=== PATIENT | female | born 1980 | race Caucasian/White ===

== ENCOUNTER 2019-04-09 12:01 | Day surgery (SDC) | payer BC, SELFPAY ==
[2019-04-09] VITALS (7 sets, daily range): BP systolic 111–133; BP diastolic 69–77; PULSE 76–95; RESP 16–18; TEMP 36.8–37.1; O2SAT 97–100; BMI 25.8
[2019-04-09] MEDS: LACTATED RINGERS 1,000 ML 30 ML IV CONT ×2 (12:45→15:33)
--- NOTE | 2019-04-09 13:18 | WPDANESEPPF ---
Anes - Initial Pre Proc Eval Procedure: Operation Date: 04/09/19 14:30 Proposed Procedures p Removal Tissue Digital Service Engineer Right Breast - Cheo Sampson MD Date/Time: 04/09/19 13:18 Surgeon: Cheo Sampson MD Pre Op Diagnosis: Exposed Tissue Digital Service Engineer Right Breast Patient Data Age: 38 Gender: F Height: 1.73 m Weight: 79.8 kg Allergies Allergy/AdvReac Type Severity Reaction Status Date / Time tramadol AdvReac Unknown UPSET Verified 04/09/19 13:06 STOMACH Home Medications Medication Instructions Recorded Confirmed Type alprazolam 0.25 mg tablet 0.25 mg PO DAILY PRN 01/25/19 04/09/19 History cetirizine 10 mg capsule 10 mg PO DAILY 01/25/19 04/09/19 History losartan 25 mg tablet 25 mg PO HS 01/25/19 04/09/19 History montelukast 10 mg tablet 10 mg PO HS 01/25/19 04/09/19 History venlafaxine 100 mg PO DAILY 02/01/19 04/09/19 History sertraline 50 mg PO HS 02/12/19 04/09/19 History trazodone 100 mg PO HS 02/12/19 04/09/19 History cephalexin 500 mg capsule 500 mg PO Q8H #30 cap 03/08/19 04/09/19 Rx carisoprodol 350 mg tablet 350 mg PO TID PRN #21 tablet 04/08/19 04/09/19 Rx Patient hx anesthesia problems: none Family hx anesthesia problems: none PMFSH Past Medical History Medical History (Updated 04/09/19 @ 13:19 by Rajesh Samayoa MD) Anxiety BRCA positive Depression Exposed breast implant Family history of breast cancer Genetic susceptibility to malignant neoplasm Hypertension Surgical History Surgical History (Updated 04/09/19 @ 13:19 by Rajesh Samayoa MD) History of bilateral mastectomy History of carpal tunnel release of both wrists History of delivery History of nasal surgery History of tubal ligation Social History Social History Smoking status: Never smoker Second hand tobacco smoke exposure: No Alcohol intake: never Substance use: never Gender identity (if verbalized by the patient): Female Spiritual care concerns: No Agree to blood products: Yes Anes - Eval Final PreProcedure Day of Procedure 04/09/19 13:18 Patient weight: overweight Heart: regular rate and rhythm Lungs: clear to auscultation and normal air movement Airway: Mallampati scale class II Neurological: alert and oriented Last oral intake: >/= 8 hours ASA classification: II Emergent: no Anesthetic plan: proceed Anesthesia type and monitoring: general LMA Informed Consent: The patient's anesthetic plan and its attendant risks and benefits were discussed with the patient/family/POA. Questions were solicited and answers provided to the satisfaction of the patient/family/POA.
[2019-04-09] MEDS: LIDO 1%/EPINEPHRINE 1:100,000 20 ML VIAL INFILTRATE (13:56)
[2019-04-09] MEDS: ceFAZolin 2 GM/D5W 50 ML 2 GM/50 ML BAG IVPB (13:56)
--- NOTE | 2019-04-09 14:42 | SUR.OPER ---
EBL:20CC
--- NOTE | 2019-04-09 14:45 | P.OP_ITS ---
Procedure Note - Detailed Date of procedure: 04/09/19 Pre-op diagnosis: Exposed Tissue Head Baggage Porter Right Breast Procedure performed: Removal right tissue retail selling floor leader and unincorporated AlloDerm Description of procedure: Patient was marked in the preoperative holding area w ith her verification. She was taken to the operating room placed supine on operating room table. Anesthesia was provided by anesthesiology. I completed examination evaluated left breast as we saw little bit of ?crusting along the previous incision line. There was no evidence of infection however and we cleaned this. On the right breast she was prepped and draped in a standard sterile fashion. Surgical time-out was taken. 1% lidocaine and 0.25% Marcaine with epinephrine was used for a field block. Fifteen blade used to make an incision at the previous incision site. I continued dissection down to the AlloDerm was identified. I opened this and removed the tissue retail selling floor leader. I then debrided all unincorporated AlloDerm which was basically the entire anterior aspect. The posterior wall was already incorporated. I irrigated with 3 L of bacitracin containing solution on TUR tubing. I then verified hemostasis. A 15 Mark drain was placed and sutured into place with 3-0 nylon. I then closed using 2-0 Vicryl followed by 3-0 Monocryl in a running subcuticular 4-0 Monocryl. A dressing was placed. She tolerated well. Surgeon: Cheo Sampson MD Estimated blood loss (mL): 5 Drains: Yes (Right 15 Mark) Packing: No Pathology: none sent Complications: No immediate complications Condition: stable Disposition: PACU Findings: Exposed AlloDerm. No sam purulence.
[2019-04-09] MEDS: ONDANSETRON INJ 4 MG/2 ML VIAL IV PUSH (15:18)
== END 2019-04-09 16:15 | disposition home or self-care (01) ==
PROVIDERS: Visit Provider Surgery Plastic and Reconstructive Surgery
PROC: (CPT 11971; principal; 2019-04-09 14:30)
DX: T85.49XA Other mechanical complication of breast prosthesis and implant, initial encounter (principal); Y83.8 Other surgical procedures as the cause of abnormal reaction of the patient, or of later complication, without mention of misadventure at the time of the procedure; I10 Essential (primary) hypertension; F41.8 Other specified anxiety disorders; Z15.01 Genetic susceptibility to malignant neoplasm of breast; Z80.3 Family history of malignant neoplasm of breast
CPT/HCPCS: 11971; J0690; J1100; J2250; J2405; J2704; J3010; J7120

== ENCOUNTER 2019-06-25 00:18 | Day surgery (SDC) | payer BC, SELFPAY ==
[2019-05-20 15:38] VITALS: BMI 25.8
[2019-06-25] VITALS (7 sets, daily range): BP systolic 118–147; BP diastolic 85–90; PULSE 96–111; RESP 10–20; TEMP 37.1–37.2; O2SAT 95–100
[2019-06-25] MEDS: LACTATED RINGERS 1,000 ML 30 ML IV CONT ×2 (10:40→14:59)
--- NOTE | 2019-06-25 11:26 | WPDANESEPPF ---
Anes - Initial Pre Proc Eval Procedure: Operation Date: 06/25/19 12:00 Proposed Procedures p Insertion Bilateral Tissue Welt Maker With Alloderm - Cheo Sampson MD Date/Time: 06/25/19 11:26 Surgeon: Cheo Sampson MD Pre Op Diagnosis: Hx Of Bilateral Mastectomy Patient Data Age: 38 Gender: F Height: 5 ft 8 in Weight: 83 kg Last Vital Signs Temp 37.2 C 06/25/19 10:07 Pulse 105 H 06/25/19 10:07 Resp 20 06/25/19 10:07 BP 125/89 06/25/19 10:07 Pulse Ox 100 06/25/19 10:07 Allergies Allergy/AdvReac Type Severity Reaction Status Date / Time tramadol AdvReac Unknown UPSET Verified 06/25/19 10:47 STOMACH Home Medications Medication Instructions Recorded Confirmed Type alprazolam 0.25 mg tablet 0.25 mg PO DAILY PRN 01/25/19 06/25/19 History cetirizine 10 mg capsule 10 mg PO DAILY 01/25/19 06/25/19 History losartan 25 mg tablet 25 mg PO HS 01/25/19 06/25/19 History venlafaxine 100 mg PO DAILY 02/01/19 06/25/19 History sertraline 50 mg PO HS 02/12/19 06/25/19 History trazodone 100 mg PO HS 02/12/19 06/25/19 History Patient hx anesthesia problems: none Family hx anesthesia problems: none PMFSH Past Medical History Medical History Anxiety BRCA positive Depression Exposed breast implant Family history of breast cancer Genetic susceptibility to malignant neoplasm Hypertension Surgical History Surgical History History of bilateral mastectomy History of carpal tunnel release of both wrists History of delivery History of nasal surgery History of tubal ligation Family History Family History Father Hypertension Family history of cardiovascular disease Cerebrovascular accident Mother Family history of lung cancer Family history of malignant neoplasm of breast in first degree relative Sibling Family history of malignant neoplasm of breast in first degree relative Social History Social History Smoking status: Never smoker Second hand tobacco smoke exposure: No Alcohol intake: never Substance use: never Gender identity (if verbalized by the patient): Female Spiritual care concerns: No Agree to blood products: Yes Anes - Eval Final PreProcedure Day of Procedure 06/25/19 11:26 Patient weight: overweight Heart: regular rate and rhythm Lungs: clear to auscultation Airway: Mallampati scale class II Neurological: alert and oriented Last oral intake: >/= 8 hours ASA classification: II Emergent: no Anesthetic plan: proceed Anesthesia type and monitoring: general LMA and standard monitoring Informed Consent: The patient's anesthetic plan and its attendant risks and benefits were discussed with the patient/family/POA. Questions were solicited and answers provided to the satisfaction of the patient/family/POA.
--- NOTE | 2019-06-25 12:08 | PM.IMHP ---
H&P: HPI History of Present Illness Chief complaint: Hx Of Bilateral Mastectomy Narrative: Petty Rodriguez is a 38 year old female who presents today for bilateral breast reconstruction using prepectoral approach and tissue expanders. She has previously had immediate reconstruction however had loss of tissue expanders. She has had significant add 1st mental affect due to the lack of reconstruction. She has been seeing her primary care physician who stated that she feels even during this time of COVID-19 she recommends proceeding with reconstruction due to overall depression. Her primary care physician as well as the patient her feel this is medically necessary due to these psychological affects. Today we had a lengthy discussion about the options. Went over the risks, benefits, alternatives in great detail. Explained the increased risks associated with COVID-19 in a must be willing to accept these risks to proceed. All questions were answered to their satisfaction and consent obtained. Review of Systems Constitutional: Comments: She has had significant depression and other psychological FX as a result of this. Eyes: Eyes: Reports no additional eye complaints ENT: Reports system reviewed and no additional complaints, except as documented Cardiovascular: Cardiovascular: Denies chest pain Respiratory: Respiratory: Denies chest congestion, Denies cough, Denies dyspnea, Denies dyspnea on exertion and Denies wheezing Gastrointestinal: Gastrointestinal: Reports no additional gastrointestinal complaints Musculoskeletal: Musculoskeletal: Reports no additional musculoskeletal complaints Integumentary/Breasts: Skin/Breast: Reports system reviewed and no additional complaints, except as docu Neurologic: Denies headache(s) Psychiatric: Comments: As above PMFSH Past Medical History Medical History Anxiety BRCA positive Depression Exposed breast implant Family history of breast cancer Genetic susceptibility to malignant neoplasm Hypertension Surgical History Surgical History History of bilateral mastectomy History of carpal tunnel release of both wrists History of delivery History of nasal surgery History of tubal ligation Family History Family History Father Hypertension Family history of cardiovascular disease Cerebrovascular accident Mother Family history of lung cancer Family history of malignant neoplasm of breast in first degree relative Sibling Family history of malignant neoplasm of breast in first degree relative Social History Social History Smoking status: Never smoker Second hand tobacco smoke exposure: No Alcohol intake: never Substance use: never Gender identity (if verbalized by the patient): Female Spiritual care concerns: No Agree to blood products: Yes Meds Home Medications and Allergies Home Medications Medication Instructions Recorded Confirmed Type alprazolam 0.25 mg tablet 0.25 mg PO DAILY PRN 01/25/19 06/25/19 History cetirizine 10 mg capsule 10 mg PO DAILY 01/25/19 06/25/19 History losartan 25 mg tablet 25 mg PO HS 01/25/19 06/25/19 History venlafaxine 100 mg PO DAILY 02/01/19 06/25/19 History sertraline 50 mg PO HS 02/12/19 06/25/19 History trazodone 100 mg PO HS 02/12/19 06/25/19 History Allergies Allergy/AdvReac Type Severity Reaction Status Date / Time tramadol AdvReac Unknown UPSET Verified 06/25/19 10:47 STOMACH Vital Signs Vital Signs - 24 hr 06/25/19 10:07 Temperature 37.2 C Pulse Rate 105 H Respiratory Rate 20 Blood Pressure 125/89 Pulse Oximetry 100 Exam Const: General: no acute distress Eyes: General: appearance normal, both eyes and all related structures Neck: Neck: no JVD Resp: Effo
--- NOTE | 2019-06-25 12:14 | P.OP_ITS ---
Procedure Note - Detailed Date of procedure: 06/25/19 Pre-op diagnosis: Hx Of Bilateral Mastectomy Acquired breast deformity Post-op diagnosis: same Procedure performed: 1. Bilateral breast reconstruction using tissue expanders 2. Placement of bilateral breast AlloDerm [id number] (x2) Description of procedure: Patient was marked in the preoperative holding area with her verification. She was accompanied by her . She was taken to the operating room placed supine on the operating room table. Anesthesia provided by anesthesiology and prepped and draped in a standard sterile fashion. Surgical time-out was taken. 1% lidocaine with epinephrine was used to provide a field block. On the back table I did prepare the tissue salvage determiner with AlloDerm. These were soaked in a triple antibiotic Betadine containing solution. Sutured with 2-0 Vicryl. I elevated in the subcutaneous plane the appropriate dimension pocket based on her preoperative planning. Irrigated with 3 liters of saline total volume on TUR tubing. I placed bilateral 10 Stephany drains which were sutured into place with 3-0 nylon. I then irrigated the pocket with triple antibiotic Betadine containing solution. Wash my gloves with the solution again. Introduced the tissue salvage determiner into place and sutured the tabs in place with 2-0 Vicryl. I closed using 2-0 Vicryl followed by 3-0 Monocryl in a running subcuticular 4-0 Monocryl and tissue glue. I adjusted the volume removing all the air and then infiltrated 300 cc of saline using a closed fill kit bilateral. Fluffs, tape, and a surgical bra were placed. She tolerated the procedure well. Implants: Right: REF [id number] SN: [id number] Fill: 300cc Left: REF [id number] SN: [id number] Fill: 300cc Anesthesia: GETA Surgeon: Cheo Sampson MD Estimated blood loss (mL): 20 Drains: Yes (Bilateral stephany) Packing: No Pathology: yes (Bilateral scars) Complications: No immediate complications Condition: stable Disposition: PACU
[2019-06-25] MEDS: LIDO 1%/EPINEPHRINE 1:100,000 20 ML VIAL 45 ML INFILTRATE (12:17)
[2019-06-25] MEDS: ceFAZolin 2 GM/D5W 50 ML 2 GM/50 ML BAG IVPB (12:17)
--- NOTE | 2019-06-25 14:43 | SUR.OPER ---
EBL:20CC
== END 2019-06-25 16:46 | disposition home or self-care (01) ==
PROVIDERS: Visit Provider Surgery Plastic and Reconstructive Surgery
PROC: (CPT 19357; principal; 2019-06-25 12:00)
DX: Z42.1 Encounter for breast reconstruction following mastectomy (principal); Z85.3 Personal history of malignant neoplasm of breast; Z90.13 Acquired absence of bilateral breasts and nipples; Z15.01 Genetic susceptibility to malignant neoplasm of breast; I10 Essential (primary) hypertension; F41.8 Other specified anxiety disorders; Z80.3 Family history of malignant neoplasm of breast
CPT/HCPCS: 19357; 15777 ×2; 88305; C1789; J0690; J1100; J1170; J1580; J2250; J2405; J2704; J3010; J7120; Q4116

== ENCOUNTER 2019-07-29 11:59 | Day surgery (SDC) | payer BC, SELFPAY ==
[2019-07-29 11:49] VITALS: BMI 27.5
[2019-07-29 13:13] VITALS: BP 124/75; PULSE 85; RESP 18; TEMP 36.4; O2SAT 100
[2019-07-29] MEDS: LACTATED RINGERS 1,000 ML 30 ML IV CONT ×2 (13:38→16:18)
--- NOTE | 2019-07-29 13:56 | WPDANESEPPF ---
Anes - Initial Pre Proc Eval Procedure: Operation Date: 07/29/19 15:00 Proposed Procedures p Right Tissue Dinkey Dispatcher Exchange and Wash Out - Cheo Sampson MD Date/Time: 07/29/19 13:56 Surgeon: Cheo Sampson MD Pre Op Diagnosis: Exposed Tissue Dinkey Dispatcher Patient Data Age: 38 Gender: F Height: 5 ft 6 in Weight: 84.75 kg Last Vital Signs Temp 36.4 C L 07/29/19 13:13 Pulse 85 07/29/19 13:13 Resp 18 07/29/19 13:13 BP 124/75 07/29/19 13:13 Pulse Ox 100 07/29/19 13:13 Allergies Allergy/AdvReac Type Severity Reaction Status Date / Time tramadol AdvReac Unknown UPSET Verified 07/29/19 13:29 STOMACH Home Medications Medication Instructions Recorded Confirmed Type alprazolam 0.25 mg tablet 0.25 mg PO DAILY PRN 01/25/19 07/29/19 History cetirizine 10 mg capsule 10 mg PO DAILY 01/25/19 07/29/19 History losartan 25 mg tablet 25 mg PO DAILY 01/25/19 07/29/19 History sertraline 50 mg PO HS 02/12/19 07/29/19 History ondansetron HCl [Zofran] 4 mg PO Q6H PRN #30 tablet 06/25/19 07/29/19 Rx venlafaxine 75 mg PO DAILY 07/29/19 07/29/19 History Patient hx anesthesia problems: none Family hx anesthesia problems: none PMFSH Past Medical History Medical History Anxiety BRCA positive Depression Exposed breast implant Family history of breast cancer Genetic susceptibility to malignant neoplasm Hypertension Surgical History Surgical History History of bilateral mastectomy History of carpal tunnel release of both wrists History of delivery History of nasal surgery History of tubal ligation Family History Family History Father Hypertension Family history of cardiovascular disease Cerebrovascular accident Mother Family history of lung cancer Family history of malignant neoplasm of breast in first degree relative Sibling Family history of malignant neoplasm of breast in first degree relative Social History Social History Smoking status: Never smoker Second hand tobacco smoke exposure: No Alcohol intake: never Substance use: never Gender identity (if verbalized by the patient): Female Spiritual care concerns: No Agree to blood products: Yes Anes - Eval Final PreProcedure Day of Procedure 07/29/19 13:56 Patient weight: overweight Heart: regular rate and rhythm Lungs: clear to auscultation Airway: Mallampati scale class II Neurological: alert and oriented Last oral intake: >/= 8 hours ASA classification: II Emergent: no Anesthetic plan: proceed Anesthesia type and monitoring: general LMA and standard monitoring Informed Consent: The patient's anesthetic plan and its attendant risks and benefits were discussed with the patient/family/POA. Questions were solicited and answers provided to the satisfaction of the patient/family/POA.
[2019-07-29] MEDS: ceFAZolin SODIUM 1 GM VIAL 2 GM IV PUSH (15:52)
[2019-07-29] MEDS: LIDO 1%/EPINEPHRINE 1:100,000 20 ML VIAL 40 ML INFILTRATE (16:02)
--- NOTE | 2019-07-29 16:13 | PM.PROC ---
Procedure Note - Detailed Date of procedure: 07/29/19 Pre-op diagnosis: Exposed Tissue Joy Operator Post-op diagnosis: same Procedure performed: Right tissue system trainer exchange Description of procedure: Patient was marked in the preoperative holding area with her verification. She was taken to the operating room placed supine on the operating room table. Anesthesia provided by anesthesiology and prepped and draped in a standard sterile fashion. Surgical time-out was taken. I was able to get a good exploration and look at the wound. There was a small 1 x 1 mm opening with exposed AlloDerm. Fifteen blade used to open the area. I debrided the skin edges and any not incorporated AlloDerm of which there was a significant amount already incorporated. The system trainer was removed. I saw no sam evidence of purulence or infection however did take cultures. I irrigated with 3 L of saline containing solution. I then irrigated with triple antibiotic Betadine solution. Washed my hands. On the back table removed all air and introduced the system trainer into the pocket. I sutured the inferior tab with a 3-0 Vicryl. I closed with 3-0 Vicryl followed by 3-0 Monocryl in horizontal mattress 3-0 nylons to get a good approximation. I expanded to 320 cc as above using a fill kit. There was no space at the end of this and this. Xeroform fluffs and a surgical bra were placed. Implants: Right system trainer [id number] [id number] filled to 320cc Anesthesia: GLMA Surgeon: Cheo Sampson MD Estimated blood loss (mL): 10 Drains: No Packing: No Pathology: other (Cultures sent.) Complications: No immediate complications Condition: stable Disposition: PACU Findings: No signs of infection. Cultures taken.
[2019-07-29 16:18] VITALS: BP 105/69; PULSE 102; RESP 12; TEMP 36.2; O2SAT 100
[2019-07-29 16:30] VITALS: BP 113/64; PULSE 94; RESP 14; TEMP 36.4; O2SAT 100
[2019-07-29 16:45] VITALS: BP 108/61; PULSE 88; RESP 14; O2SAT 97
--- NOTE | 2019-07-29 16:48 | SUR.PHASEI ---
1648; PT AWAKE AND ALERT. TALKATIVE. STATES READY TO GO HOME. DENIES PAIN OR NAUSEA .
[2019-07-29 16:55] VITALS: BP 129/76; PULSE 87; RESP 16
[2019-07-29 17:22] VITALS: BP 123/74; PULSE 83; RESP 16
--- NOTE | 2019-07-29 17:29 | SUR.PHASEII ---
1715; pt awake and alert. denies pain or nausea. asking to go home. meets discharge criteria
== END 2019-07-29 17:25 | disposition home or self-care (01) ==
PROVIDERS: Visit Provider Surgery Plastic and Reconstructive Surgery
PROC: (CPT 19357; principal; 2019-07-29 15:00)
DX: T85.49XA Other mechanical complication of breast prosthesis and implant, initial encounter (principal); Y83.8 Other surgical procedures as the cause of abnormal reaction of the patient, or of later complication, without mention of misadventure at the time of the procedure; I10 Essential (primary) hypertension; F32.9 Major depressive disorder, single episode, unspecified; Z15.01 Genetic susceptibility to malignant neoplasm of breast; Z90.13 Acquired absence of bilateral breasts and nipples
CPT/HCPCS: 19357; 87070; 87075; 87205; C1789; J0690; J1100; J1580; J2250; J2370; J2405; J2704; J3010; J7030; J7120

== ENCOUNTER 2020-01-15 00:24 | Outpatient (CLI) | payer BC, SELFPAY ==
[2020-01-15 18:04] LABS: SARS-CoV-2 RNA PCR Negative
== END 2020-01-15 00:25 | disposition home or self-care (01) ==
LOC: ANHCOVIDDT 00:24
PROVIDERS: Visit Provider Surgery Plastic and Reconstructive Surgery
DX: Z01.812 Encounter for preprocedural laboratory examination (principal); Z20.828 Contact with and (suspected) exposure to other viral communicable diseases
CPT/HCPCS: 87635; C9803; U0003

== ENCOUNTER 2020-01-18 01:58 | Day surgery (SDC) | payer BC, SELFPAY ==
[2020-01-05 14:24] VITALS: BMI 28.8
[2020-01-18] VITALS (7 sets, daily range): BP systolic 85–114; BP diastolic 45–75; PULSE 61–82; RESP 20; TEMP 36.6–37.2; O2SAT 94–100
[2020-01-18 09:52] LABS: Urine Cotinine NEGATIVE
[2020-01-18] MEDS: LACTATED RINGERS 1,000 ML 30 ML IV CONT ×2 (10:00→13:10)
--- NOTE | 2020-01-18 10:07 | WPDANESEPPF ---
Anes - Initial Pre Proc Eval Procedure: Operation Date: 01/18/20 11:30 Proposed Procedures p Bilateral Breast Tissue [employer] Liaison Officer Exchange For Bilateral Breast Implants - Cheo Sampson MD s Bilateral Breast Fat Grafting - Cheo Sampson MD Date/Time: 01/18/20 10:07 Surgeon: Cheo Sampson MD Pre Op Diagnosis: Hx Of Mastectomy Patient Data Age: 39 Gender: F Height: 5 ft 6 in Weight: 81 kg Allergies Allergy/AdvReac Type Severity Reaction Status Date / Time tramadol AdvReac Unknown UPSET Verified 01/18/20 10:05 STOMACH Home Medications Medication Instructions Recorded Confirmed Type cetirizine 10 mg capsule 10 mg PO DAILY 01/25/19 01/18/20 History losartan 25 mg tablet 25 mg PO BID 01/25/19 01/18/20 History hydrocodone 5 mg-acetaminophen 325 1 tablet PO Q6H PRN #15 tablet 01/05/20 01/18/20 Rx mg tablet ondansetron HCl 4 mg tablet 4 mg PO Q6H PRN #30 tablet 01/05/20 01/18/20 Rx Laboratory Tests 01/18/20 09:21 Cotinine Negative Patient hx anesthesia problems: none Family hx anesthesia problems: none PMFSH Past Medical History Medical History Anxiety BRCA positive Depression Exposed breast implant Family history of breast cancer Genetic susceptibility to malignant neoplasm Hypertension Surgical History Surgical History History of bilateral mastectomy History of carpal tunnel release of both wrists History of delivery History of nasal surgery History of tubal ligation Family History Family History Father Hypertension Family history of cardiovascular disease Cerebrovascular accident Mother Family history of lung cancer Family history of malignant neoplasm of breast in first degree relative Sibling Family history of malignant neoplasm of breast in first degree relative Social History Social History Smoking status: Never smoker Second hand tobacco smoke exposure: No Alcohol intake: never Substance use: never Living arrangements: with family Gender identity (if verbalized by the patient): Female Spiritual care concerns: No Agree to blood products: Yes Anes - Eval Final PreProcedure Day of Procedure 01/18/20 10:07 Patient weight: overweight Heart: regular rate and rhythm Lungs: clear to auscultation Airway: Mallampati scale class II Neurological: alert and oriented Last oral intake: >/= 8 hours ASA classification: III Emergent: no Anesthetic plan: proceed Anesthesia type and monitoring: general LMA and standard monitoring Informed Consent: The patient's anesthetic plan and its attendant risks and benefits were discussed with the patient/family/POA. Questions were solicited and answers provided to the satisfaction of the patient/family/POA.
--- NOTE | 2020-01-18 10:28 | WPDHPUPDATE1 ---
History and Physical Update Update Date/Time: 01/18/20 10:28 History and Physical has been reviewed, including an updated exam of the patient. There are NO changes in the patient's condition. Risks, benefits, and alternatives have been discussed and questions answered. Patient agrees to proceed with procedure.
--- NOTE | 2020-01-18 10:43 | PM.PROC ---
Procedure Note - Detailed Date of procedure: 01/18/20 Pre-op diagnosis: Hx Of Mastectomy Acquired bilateral breast deformity Post-op diagnosis: same Procedure performed: 1. Bilateral tissue logistics account manager exchange for permanent implant 2. Bilateral breast fat grafting 3. Bilateral capsulotomy Description of procedure: Patient was marked in the preoperative holding area with her verification. Risks, benefits, alternatives were discussed in extensive detail. I want her to be very realistic about the risks involved as well as expectations. Made sure answered all of her questions to her satisfaction including aftercare. Consent obtained. She was taken to the operating room placed supine on the operating table. Anesthesia provided by anesthesiology and prepped and draped in a standard sterile fashion. Surgical time-out was taken. I used a 14 gauge needle to make a stab incision on the abdomen after I did a thorough abdominal examination. Infiltrated with tumescent solution waited for adequate time for hemostasis. Using a 3 mm multi hole cannula I completed suction lipectomy to gravity separation device in multiple planes and passes. We allowed for adequate time for separation of the adipose tissue. 14 gauge was used to make stab incisions of the breast. I completed fat grafting of the central adipose tissue using a 3mm canula based on preoperative planning as well as intraoperative observations. Fifteen blade used to excise a section of the previous scar. Dissection was continued down to the tissue logistics account manager was identified and this was removed. I irrigated with 3 L of saline on TUR tubing. I completed a up for capsulotomy as necessary on superior pole. Verified strict hemostasis. Using a no-touch technique I copiously irrigated with triple antibiotic Betadine solution. Using a [place] funnel the implant was introduced into the pocket and closed using 2-0 Vicryl followed by 3-0 Monocryl in a running subcuticular 4-0 Monocryl as well as tissue glue. Dressings were placed. She was woken taken to the PACU without difficulty. All instrument sponge counts were correct at the end of the case. Anesthesia: GLMA Surgeon: Cheo Sampson MD Estimated blood loss (mL): 10 Drains: No Packing: No Pathology: none sent Complications: No immediate complications Condition: stable Disposition: PACU Findings: Fat grafting: [place] site abdomen Right breast - 60cc Left breast - 50cc Bilateral Natrelle Inspira SoftTouch 605cc Silicone Implants Right: REF [id number] SN [id number] Left: REF [id number] SN [id number]
[2020-01-18] MEDS: ceFAZolin 2 GM/D5W 50 ML 2 GM/50 ML BAG IVPB (10:58)
--- NOTE | 2020-01-18 13:12 | SUR.OPER ---
EBL:10cc
[2020-01-18] MEDS: ONDANSETRON INJ 4 MG/2 ML VIAL IV PUSH (13:33)
--- NOTE | 2020-01-18 13:38 | SUR.PHASEII ---
[id number]- Call to Dr. Gunter patient complaining of itching and raised red rash noted to patient's bilateral upper thighs. Obtained orders for 25MG IVP benadryl once. Patient's BP soft at 80's over 40's, denying symptoms at this time. Obtained orders for 500ML IV bolus of LR.
[2020-01-18] MEDS: LACTATED RINGERS 500 ML IV CONT (13:43)
[2020-01-18] MEDS: diphenhydrAMINE HCl INJ 50 MG/ML VIAL 25 MG IV PUSH (13:44)
[2020-01-18] MEDS: oxyCODONE HCL (*CRX) 5 MG TAB IR PO (14:40)
== END 2020-01-18 14:42 | disposition home or self-care (01) ==
PROVIDERS: Visit Provider Surgery Plastic and Reconstructive Surgery
PROC: (CPT 11970; principal; 2020-01-18 11:30)
PROC: (CPT 15769; 2020-01-18 11:30)
DX: Z42.1 Encounter for breast reconstruction following mastectomy (principal); Z90.13 Acquired absence of bilateral breasts and nipples; Z15.01 Genetic susceptibility to malignant neoplasm of breast; Z80.3 Family history of malignant neoplasm of breast; I10 Essential (primary) hypertension; F41.9 Anxiety disorder, unspecified; F32.9 Major depressive disorder, single episode, unspecified; Z79.899 Other long term (current) drug therapy
CPT/HCPCS: 11970; 19366; 80307; A9270; C9290; J0171; J0690; J1100; J1200; J1580; J2250; J2405; J2704; J3010; J7120

== ENCOUNTER → 2020-04-17 01:15 | Outpatient (CLI) | payer BC, SELFPAY ==
[2020-04-17 18:28] LABS: SARS-CoV-2 RNA PCR Negative
== END ==
PROVIDERS: Visit Provider Surgery Plastic and Reconstructive Surgery
DX: Z01.812 Encounter for preprocedural laboratory examination (principal); Z20.822 Contact with and (suspected) exposure to COVID-19
CPT/HCPCS: C9803; U0003; U0005

== ENCOUNTER 2020-04-17 07:33 | Outpatient (CLI) | payer BC, SELFPAY ==
--- NOTE | 2020-04-17 08:18 | ECG_ITS ---
Measurements Intervals Surveyor Rate: 79 P: 38 NM: 135 QRS: 57 QRSD: 86 T: 38 QT: 348 QTc: 401 Interpretive Statements SINUS RHYTHM BASELINE ARTIFACT- I, II, III, AVR, AVL, AVF, V4 NORMAL ECG Electronically Signed On 04-17-2020 8:35:20 MACHINING ASSOCIATE by Paras Courtney D.O.
== END 2020-04-17 07:34 | disposition home or self-care (01) ==
PROVIDERS: Visit Provider Anesthesiology
DX: Z01.812 Encounter for preprocedural laboratory examination (principal); I10 Essential (primary) hypertension
CPT/HCPCS: 93005

== ENCOUNTER 2020-04-20 00:39 | Day surgery (SDC) | payer BC, SELFPAY ==
[2020-04-14 17:03] VITALS: BMI 28.4
--- NOTE | 2020-04-19 11:08 | WPDANESEPPF ---
Anes - Initial Pre Proc Eval Procedure: Operation Date: 04/20/20 10:30 Proposed Procedures p Bilateral Breast Implant Exchange - Cheo aSmpson MD s Bilateral Breast Fat Grafting - Cheo Sampson MD s Skin Excision To Elevate Bilateral Areolar Nipple Complex - Cheo Sampson MD Date/Time: 04/19/20 11:09 Surgeon: Cheo Sampson MD Pre Op Diagnosis: Hx of Mastectomy Patient Data Age: 39 Gender: F Height: 1.68 m Weight: 80 kg Allergies Allergy/AdvReac Type Severity Reaction Status Date / Time tramadol Allergy Intermediate UPSET Verified 04/20/20 08:43 STOMACH Home Medications Medication Instructions Recorded Confirmed Type losartan 25 mg tablet 25 mg PO BID 01/25/19 04/20/20 History hydrocodone 5 mg-acetaminophen 325 1 tablet PO Q6H PRN #15 tablet 04/12/20 04/14/20 Rx mg tablet ondansetron HCl 4 mg tablet 4 mg PO Q6H PRN #30 tablet 04/12/20 04/14/20 Rx bupropion HCl [Wellbutrin XL] 300 mg PO DAILY 04/14/20 04/20/20 History sertraline [Zoloft] 100 mg PO HS 04/14/20 04/20/20 History Patient hx anesthesia problems: none Family hx anesthesia problems: none PMFSH Past Medical History Medical History Anxiety BRCA positive Depression Exposed breast implant Family history of breast cancer Genetic susceptibility to malignant neoplasm Hypertension Surgical History Surgical History History of bilateral mastectomy History of carpal tunnel release of both wrists History of delivery History of nasal surgery History of tubal ligation Family History Family History Father Hypertension Family history of cardiovascular disease Cerebrovascular accident Mother Family history of lung cancer Family history of malignant neoplasm of breast in first degree relative Sibling Family history of malignant neoplasm of breast in first degree relative Social History Social History Smoking status: Former smoker Second hand tobacco smoke exposure: No Additional smoking assessment comments: QUIT SMOKING YEARS AGO Alcohol intake: never Substance use: never Living arrangements: with family Gender identity (if verbalized by the patient): Female Spiritual care concerns: No Agree to blood products: Yes Anes - Eval Final PreProcedure Day of Procedure 04/19/20 11:09 Patient weight: overweight Heart: regular rate and rhythm Lungs: clear to auscultation and normal air movement Airway: Mallampati scale class II Neurological: alert and oriented Last oral intake: >/= 8 hours ASA classification: III Emergent: no Anesthetic plan: proceed Anesthesia type and monitoring: general LMA Informed Consent: The patient's anesthetic plan and its attendant risks and benefits were discussed with the patient/family/POA. Questions were solicited and answers provided to the satisfaction of the patient/family/POA.
[2020-04-20] VITALS (9 sets, daily range): BP systolic 109–144; BP diastolic 76–86; PULSE 83–96; RESP 12–20; TEMP 36.4–37.1; O2SAT 95–100
[2020-04-20] MEDS: LACTATED RINGERS 1,000 ML 30 ML IV CONT ×2 (08:45→12:00)
[2020-04-20 08:51] LABS: Urine Cotinine NEGATIVE
--- NOTE | 2020-04-20 09:01 | WPDHPUPDATE1 ---
History and Physical Update Update Date/Time: 04/20/20 09:01 History and Physical has been reviewed, including an updated exam of the patient. There are NO changes in the patient's condition. Risks, benefits, and alternatives have been discussed and questions answered. Patient agrees to proceed with procedure.
--- NOTE | 2020-04-20 09:28 | P.OP_ITS ---
Procedure Note - Detailed Date of procedure: 04/20/20 Pre-op diagnosis: Hx of Mastectomy Acquired breast deformity Post-op diagnosis: same Procedure performed: 1. Bilateral breast fat grafting 130 cc (R: 50cc L: 80cc) 2. Bilateral breast implant exchange 3. Bilateral mastopexy Description of procedure: Patient was marked in the preoperative holding area with her verification. Risks, benefits, alternatives were discussed. All questions answered to her satisfaction. Consent obtained. She was taken to the operating room placed supine on the operating room table. Anesthesia by anesthesiology and she was prepped and draped in a standard sterile fashion. Thorough abdominal examination was completed. I infiltrated with tumescent solution based on her preoperative planning. Then using a 3 mm multi hole suc tion cannula completed suction lipectomy to a gravity separation device. Once adequate time for fat separation a 14 gauge needle on the breast and infiltrated the central portion of the adipose tissue removing the in. Superior portion for gravity separation in multiple planes and passes based on her preoperative planning. Volumes as above. A 15 blade used to make an incision entering the implant space bilateral. I removed bilateral implants. I copiously irrigated with 3 L of saline containing solution. I then used triple antibiotic Betadine containing solution. Wash my gloves. Using a no-touch technique and a [place] funnel the implants were introduced into the pocket. This was closed with 2-0 Vicryl followed by 3-0 Monocryl. I then tailor tacked the breast into position. Placed her in a sitting position based my preoperative measurements. I de-epithelialized the superior tissue with a planned skin resection and elevation of the nipple-areolar complex. There is no undermining necessary of this. This was just completely de- epithelialized. This was closed using 3-0 monocryl, and running subcuticular 4- 0 Monocryl followed by tissue glue. Dressings were placed. She was woken taken to PACU without difficulty. All instrument sponge counts were correct at the end the case. Anesthesia: GLMA Surgeon: Cheo Sampson MD Estimated blood loss (mL): 30 Drains: No Packing: No Pathology: none sent Complications: No immediate complications Condition: stable Disposition: PACU Findings: Bilateral Natrelle Inspira SoftTouch Breast Implants 605cc Right: REF SSF-605 SN [id number] Left: REF SSF-605 SN [id number]
[2020-04-20] MEDS: ceFAZolin 2 GM/D5W 50 ML 2 GM/50 ML BAG IVPB (09:45)
--- NOTE | 2020-04-20 11:34 | SUR.OPER ---
EBL:30cc
[2020-04-20] MEDS: fentaNYL CITRATE INJ (*CRX) 100 MCG/2 ML VIAL 25 MCG IV PUSH ×4 (12:36→12:42)
[2020-04-20] MEDS: oxyCODONE HCL (*CRX) 5 MG TAB IR PO (13:28)
== END 2020-04-20 14:00 | disposition home or self-care (01) ==
PROVIDERS: Visit Provider Surgery Plastic and Reconstructive Surgery
PROC: (CPT 19342; principal; 2020-04-20 10:30)
PROC: (CPT 15769; 2020-04-20 10:30)
PROC: (CPT 19316; 2020-04-20 10:30)
DX: N64.89 Other specified disorders of breast (principal); Z85.3 Personal history of malignant neoplasm of breast; Z90.13 Acquired absence of bilateral breasts and nipples; Z15.01 Genetic susceptibility to malignant neoplasm of breast; I10 Essential (primary) hypertension; F41.8 Other specified anxiety disorders; Z80.3 Family history of malignant neoplasm of breast; Z79.899 Other long term (current) drug therapy; Z87.891 Personal history of nicotine dependence
CPT/HCPCS: 19380; 15771; 15772 ×2; 80307; A9270; J0171; J0690; J1100; J1170; J1580; J2250; J2405; J2704; J3010; J7120